=== PATIENT | female | born 1965 | race Caucasian/White ===

== ENCOUNTER 2024-02-17 06:32 | Inpatient (IN) | payer MEDICARE, OTHER ==
[~2024-02-17] VITALS: Ht 167.6 cm; Wt 80.4 kg
[2024-02-17] VITALS (49 sets, daily range): BP systolic 72–129; BP diastolic 34–78
[2024-02-17 08:02] LABS: Hematocrit 39.9 % (33.0-51.0); Hemoglobin 11.6 g/dL (11.5-16.0); Mean Corpuscular HGB 29.3 pg (26.0-34.0); Mean Corpuscular HGB Conc 29.1 g/dL (31.5-36.5); Mean Corpuscular Volume 101 fL (80-100); Mean Platelet Volume 11.4 fL (9.1-12.4); Platelet Count 252 K/mm3 (150-400); RDW Coefficient Variation 12.5 % (11.7-14.2); RDW Standard Deviation 46.7 fL (35.1-46.3); Red Blood Cell Count 3.96 M/mm3 (3.80-5.20); White Blood Cell Count 28.97 K/mm3 (4.00-11.30)
[2024-02-17 08:04] LABS: Bicarbonate Venous 3.1 mmol/L (24.0-30.0); PCO2 Venous 26.2 mmHg (38-42); pH Blood Venous < 6.82 (7.34-7.37)
[2024-02-17 08:05] LABS: Base Excess Venous -35.1 mmol/L
[2024-02-17] MEDS ORDERED: Prozac40 MG PO (08:09)
[2024-02-17] MEDS ORDERED: CefTRIAXone Sodium 1,000 MG in NS 100 ML IV ONE (08:20)
[2024-02-17] MEDS ORDERED: NS 1,000 ML IV SCH ×3 (08:20→11:10)
[2024-02-17] MEDS ORDERED: Azithromycin 500 MG in NS 250 ML IV ONE (08:25)
[2024-02-17] MEDS ORDERED: Ketorolac Tromethamine 30mg Vial IV ONE (08:25)
[2024-02-17 08:35] LABS: Albumin, Blood 3.3 g/dL (3.4-5.0); Albumin/Globulin Ratio 0.8 (0.8-1.8); BASOPHILS PERCENT MAN 0 % (0-2); Bilirubin, Total 0.6 mg/dL (0.1-1.0); Calcium, Blood 8.7 mg/dL (8.5-10.1); Creatinine, Blood 9.61 mg/dL (0.40-1.00); EOSINOPHILS PERCENT MAN 0 % (0-6); Globulin, Blood 4.2 g/dL (2.2-4.0); LYMPHOCYTES ABSOLUTE MAN 2.31 K/mm3 (0.84-5.20); LYMPHOCYTES PERCENT MAN 8 % (21-46); MONOCYTES ABSOLUTE MAN 1.15 K/mm3 (0.16-1.47); MONOCYTES PERCENT MAN 4 % (4-13); NEUTROPHILS ABSOLUTE MAN 25.49 K/mm3 (1.96-9.15); Potassium, Blood 5.5 mmol/L (3.5-5.5); SEG NEUTROPHILS PERCENT MAN 88 % (41-73); TOTAL CELLS COUNTED 100; Total Protein, Blood 7.5 g/dL (6.4-8.2)
[2024-02-17] MEDS ORDERED: Sodium Bicarb 8.4% 1 MEQ/ML 50 ML Vial IV ONE ×3 (08:35→13:00)
[2024-02-17 08:41] LABS: Influenza A, PCR NEGATIVE (NEGATIVE); Influenza B, PCR NEGATIVE (NEGATIVE); Resp Syncytial Virus, PCR NEGATIVE (NEGATIVE); SARS-Cov-2 (COVID-19) PCR, MMC NEGATIVE (NEGATIVE)
[2024-02-17 08:59] LABS: Acetaminophen, Random <2.0 ug/mL (10.0-30.0); Salicylate 3.4 mg/dL (2.8-20.0)
[2024-02-17 09:25] LABS: Source, Urine Foley catheter
[2024-02-17 09:26] LABS: Appearance, Urine Hazy (Clear); Bilirubin, Urine Neg (Neg); Blood, Urine 3+ (Neg); Color, Urine Yellow (P-Yellow); Glucose Qualitative, Urine Neg (Neg); Ketones, Urine 2+ (Neg); Leukocyte Esterase, Urine 3+ (Neg); Nitrite, Urine Neg (Neg); Protein, Urine 3+ (Neg); Urobilinogen, Urine NORM (Normal)
[2024-02-17] MEDS ORDERED: DiphenhydrAMINE HCl 50 MG/ML 1ML Vial IV ONE (09:30)
[2024-02-17 09:34] LABS: Bacteria Many /hpf; Red Blood Cells, Urine 0-2 /hpf (0-2); Squamous Epithelial Cells Few /hpf (Few); White Blood Cells, Urine 25-50 /hpf (0-5)
[2024-02-17 09:50] LABS: U Amphetamine Screen DETECTED; U Barbituate Screen Not Detected; U Benzodiazapine Screen Not Detected; U Buprenorphine Screen Not Detected; U Cannabinoids Screen Not Detected; U Cocaine Screen Not Detected; U Methadone Screen Not Detected; U Methamphetamine Screen Not Detected; U Opiates Screen Not Detected; U Oxycodone Screen Not Detected; U Phencyclidine Screen Not Detected
[2024-02-17] MEDS ORDERED: Sodium Bicarb 8.4% Inj 150 MEQ in Dextrose 5% 1,000 ML IV SCH (10:05)
[2024-02-17] MEDS ORDERED: Cefepime HCl 1,000 MG in NS 100 ML IV SCH (11:20)
[2024-02-17] MEDS ORDERED: OZEMPIC2 MG/0.75 (11:27)
[2024-02-17] MEDS ORDERED: OMEP20ER PO (11:27)
[2024-02-17] MEDS ORDERED: Norco 10-325 T1 EACH PO (11:28)
[2024-02-17] MEDS ORDERED: TRESIBA100 UNIT/2 SC (11:28)
[2024-02-17] MEDS ORDERED: QUET100 PO (11:29)
[2024-02-17] MEDS ORDERED: METF500C PO (11:29)
[2024-02-17] MEDS ORDERED: ATOR40TA PO (11:29)
[2024-02-17] MEDS ORDERED: LOSA25 PO (11:29)
[2024-02-17] MEDS ORDERED: Vancomycin HCL 1,500 MG in NS 250 ML IV ONE (11:35)
[2024-02-17] MEDS ORDERED: Insulin Human Lispro 100 Units/ML 3ML Syringe SC SCH (12:00)
[2024-02-17 12:39] LABS: Albumin, Blood 2.5 g/dL (3.4-5.0); Anion Gap 43 mmol/L (3-11); Blood Urea Nitrogen 74 mg/dL (8-24); Bun/Creatinine Ratio 8.1 (12.0-20.0); CO2, Blood 2 mmol/L (21-32); Calcium, Blood 6.9 mg/dL (8.5-10.1); Chloride, Blood 103 mmol/L (98-108); Glomerular Filtration Rate 5 (60-); Glucose, Blood 129 mg/dL (70-99); Phosphorus, Blood 14.2 mg/dL (2.5-4.9); Sodium, Blood 143 mmol/L (136-145)
--- NOTE | 2024-02-17 14:35 | NUR ---
ARRIVAL TO ICU PT ARRIVED TO ICU 8 AT THIS TIME. SHE IS RECEIVING BICARB 200ML/HR. SHE IS DROWSY BUT WAKENS TO VERBAL STIMULI. AFTER SLIDING TO ICU BED, PT MORE AWAKE AND A&OX3. SHE REPORTS FEELING A LITTLE BETTER THAN THIS MORNING. DENIES PAIN AT THIS TIME. SHE IS ON 2L NC WITH SPO2 >95%. SINUS ON MONITOR WITH RATE IN 80S. PT HYPOTENSIVE WITH MAP IN 50S. PROVIDER NOTIFIED, ORDER RECEIVED FOR LEVOPHED. LEVOPHED STARTED AT 2MCG/MIN. BOWEL TONES HYPOACTIVE, ABDOMEN SOFT. PT ATTEMPTED TO SIT ON BEDPAN WITHOUT SUCCESS. PT DENIES NAUSEA/GI UPSET. TEMP CHESTER PATENT AND DRAINING TO GRAVITY. CORE TEMP 92.5, WARM BLANKETS APPLIED. LABS DRAWN, RESULTS GIVEN TO APARTMENT HOTEL MANAGER AND FIRST HELPER. MEDICAL HISTORY PROVIDED MOSTLY FROM AND DAUGHTER. PLAN FOR EMERGENT DIALYSIS CATH PLACEMENT.
[2024-02-17 14:42] LABS: Base Excess Venous -28.3 mmol/L; PCO2 Venous 27.1 mmHg (38-42); pH Blood Venous 6.87 (7.34-7.37)
[2024-02-17] MEDS ORDERED: NS 250 ML IV PRN (14:45)
[2024-02-17 16:07] LABS: Albumin, Blood 2.6 g/dL (3.4-5.0); Anion Gap 42 mmol/L (3-11); Blood Urea Nitrogen 80 mg/dL (8-24); Bun/Creatinine Ratio 9.3 (12.0-20.0); CO2, Blood 7 mmol/L (21-32); Calcium, Blood 7.1 mg/dL (8.5-10.1); Chloride, Blood 101 mmol/L (98-108); Creatinine, Blood 8.56 mg/dL (0.40-1.00); Glomerular Filtration Rate 5 (60-); Glucose, Blood 204 mg/dL (70-99); Phosphorus, Blood 14.7 mg/dL (2.5-4.9); Potassium, Blood 5.3 mmol/L (3.5-5.5); Sodium, Blood 145 mmol/L (136-145)
--- NOTE | 2024-02-17 16:35 | NUR ---
FAMILY CONTACTS: ZEE TO (): [phone] BREEZY MORENO (DAUGHTER): [phone] AMELIA ERVIN (DAUGHTER): [phone]
[2024-02-17] MEDS ORDERED: Anticoagulant Sod Citrate Soln 3 ML SYR INJ PRN ×2 (17:00→17:05)
[2024-02-17] MEDS ORDERED: Albumin (Human) 25gm/100ml 100 ML IV ONE (17:40)
[2024-02-17] MEDS ORDERED: Heparin Sodium,Porcine 5,000 UNIT/0.5 ML SDV SC SCH (18:00)
--- NOTE | 2024-02-17 18:52 | NUR ---
SHIFT SUMMARY PT RECEIVING BICARB 200ML/HR AND LEVOPHED 3MCG/MIN. SHE REMAINS DROWSY BUT WAKENS TO VERBAL STIMULI. A&OX3 DURING CONVERSATION. SHE IS ON 2L NC WITH SPO2 >95%. SINUS ON MONITOR WITH RATE IN 80S-90S. PT TOLERATING SIPS OF WATER BUT OTHERWISE NPO. TEMP CHESTER PATENT AND DRAINING SMALL AMOUNT OF URINE. 250ML OUTPUT THIS AFTERNOON. CORE TEMP LOW UPON ARRIVAL TO UNIT. FLUID WARMER AND BARE HUGGER IN PLACE. CURRENT CORE TEMP 95.0. TRIALYSIS LINE PLACED THIS EVENING. CLAIMS COUNSEL AT BEDSIDE NOW. ZEE UPDATED VIA TELEPHONE. BED IN LOW POSITION AND CALL LIGHT WITHIN REACH.
[2024-02-17] MEDS ORDERED: Albumin (Human) 25gm/100ml 100 ML IV SCH (19:20)
--- NOTE | 2024-02-17 20:30 | NUR ---
WOUND NOTIFICATION HOSPITALIST NOTIFIED OF SACRAL WOUND PRESENT ON ADMISSION - PHOTOS IN CHART.
[2024-02-17] MEDS ORDERED: Famotidine 10 MG/ML 2ML Vial IV SCH (21:00)
--- NOTE | 2024-02-17 21:19 | NUR ---
ASSUMED CARE OF PATIENT AT 1900. REPORT RECEIVED FROM MODESTO DIAZ. PT IN BED, RECEIVING DIALYSIS AT TIME OF BEDSIDE REPORT. LEVOPHED INFUSING AT 3 MCG/MIN WITH BP OF 106/42 AND MAP OF 62. BICARB INFUSING AT 200mL/HR. R TRIALYSIS CATHETER VISUALIZED WITH MILD BLEEDING UNDER DRESSING. BEAR HUGGER AND FLUID WARMER IN PLACE. CORE TEMP CURRENTLY AT 95.0. NO ACUTE NEEDS IDENTIFED AT THIS TIME. SEE SHIFT ASSESSMENT FOR FULL DETAILS.
[2024-02-17] MEDS ORDERED: LORazepam 2 MG/ML 1ML Injection IV ONE (23:20)
[2024-02-17 23:51] LABS: Albumin, Blood 3.6 g/dL (3.4-5.0); Anion Gap 40 mmol/L (3-11); Blood Urea Nitrogen 55 mg/dL (8-24); CO2, Blood 12 mmol/L (21-32); Chloride, Blood 91 mmol/L (98-108); Creatinine, Blood 5.49 mg/dL (0.40-1.00); Glomerular Filtration Rate 8 (60-); Glucose, Blood 286 mg/dL (70-99); Potassium, Blood 3.8 mmol/L (3.5-5.5); Sodium, Blood 139 mmol/L (136-145)
[2024-02-17 23:52] LABS: Phosphorus, Blood 7.8 mg/dL (2.5-4.9)
[2024-02-18] VITALS (81 sets, daily range): BP systolic 86–200; BP diastolic 35–101
[2024-02-18 03:32] LABS: BASOPHILS ABSOLUTE AUTO 0.04 K/mm3 (0.00-0.23); BASOPHILS PERCENT AUTO 0 % (0-2); EOSINOPHILS PERCENT AUTO 0 % (0-6); Hematocrit 29.6 % (33.0-51.0); Hemoglobin 9.3 g/dL (11.5-16.0); IMMATURE GRAN ABSOLUTE AUTO 0.25 K/mm3 (0.00-0.10); IMMATURE GRAN PERCENT AUTO 1 % (0-1); LYMPHOCYTES ABSOLUTE AUTO 1.37 K/mm3 (0.84-5.20); LYMPHOCYTES PERCENT AUTO 7 % (21-46); MONOCYTES ABSOLUTE AUTO 1.93 K/mm3 (0.16-1.47); MONOCYTES PERCENT AUTO 9 % (4-13); Mean Corpuscular HGB 28.8 pg (26.0-34.0); Mean Corpuscular HGB Conc 31.4 g/dL (31.5-36.5); Mean Platelet Volume 11.4 fL (9.1-12.4); NEUTROPHILS PERCENT AUTO 83 % (41-73); Platelet Count 162 K/mm3 (150-400); Red Blood Cell Count 3.23 M/mm3 (3.80-5.20); White Blood Cell Count 20.89 K/mm3 (4.00-11.30)
[2024-02-18 03:57] LABS: Mean Corpuscular Volume 92 fL (80-100)
[2024-02-18 03:58] LABS: Magnesium, Blood 1.6 mg/dL (1.6-2.4); Uric Acid, Blood 8.9 mg/dL (2.6-6.0)
[2024-02-18 04:00] LABS: Albumin, Blood 3.5 g/dL (3.4-5.0); Anion Gap 38 mmol/L (3-11); Blood Urea Nitrogen 59 mg/dL (8-24); Bun/Creatinine Ratio 10.1 (12.0-20.0); CO2, Blood 14 mmol/L (21-32); Calcium, Blood 6.8 mg/dL (8.5-10.1); Chloride, Blood 89 mmol/L (98-108); Creatinine, Blood 5.83 mg/dL (0.40-1.00); Glomerular Filtration Rate 8 (60-); Glucose, Blood 370 mg/dL (70-99); Phosphorus, Blood 8.4 mg/dL (2.5-4.9); Potassium, Blood 4.1 mmol/L (3.5-5.5); Sodium, Blood 137 mmol/L (136-145); Vancomycin, Random 16.3 ug/mL
--- NOTE | 2024-02-18 06:04 | NUR ---
SHIFT SUMMARY PT REMAINED ALERT AND ORIENTED X 3 T/0 ENTIRETY OF SHIFT. UNABLE TO VERBALIZE DATE/TIME. AFEBRILE. BEAR HUGGER AND FLUID WARMER DC'ED D/T IMPROVEMENT OF TEMPERATURE. ABLE TO FOLLOW COMMANDS, MAKE PURPOSEFUL MOVEMENTS, AND MAKE NEEDS KNOWN. MONITOR SHOWED SR-ST WITH HR IN 90'S-100'S. LEVOPHED TITRATED TO MAINTAIN MAP > 65. LEVOPHED CURRENTLY AT 2 MCG/MIN. SBP 90'S-100'S. ON 2LPM O2 VIA NC WITH SATURATIONS > 95%. ONE BM THIS SHIFT. NPO D/T ASPIRATION RISK, TOLERATED SIPS OF WATER WELL. RECTAL TEMP PROBE REMOVED. CHESTER PATENT AND DRAINING THICK, FARFAN COLORED URINE TO GRAVITY. SACRAL WOUND PRESENT ON ADMISSION, HOSPITALIST AWARE. BILATERAL PIV's, RIJ INFUSING LEVOPHED. NEPHROLOGY PLANS FOR DIALYSIS AGAIN TODAY. WILL CONTINUE TO MONITOR AND REPORT TO ONCOMING RN.
[2024-02-18] MEDS ORDERED: Insulin Human Lispro 100 Units/ML 3ML Syringe SC SCH ×2 (08:06→08:10)
[2024-02-18] MEDS ORDERED: Anticoagulant Sod Citrate Soln 3 ML SYR INJ PRN (08:45)
[2024-02-18] MEDS ORDERED: Albumin (Human) 25gm/100ml 100 ML IV SCH (08:45)
[2024-02-18] MEDS ORDERED: Heparin Sodium,Porcine 5,000 UNIT/0.5 ML SDV SC SCH (09:00)
[2024-02-18] MEDS ORDERED: Albuterol 2.5 MG/3 ML VIAL INH PRN (09:15)
[2024-02-18] MEDS ORDERED: Ipratropium/Albuterol SulF 2.5-0.5MG/3 ML Amp INH SCH (09:15)
--- NOTE | 2024-02-18 13:43 | NUR ---
CARE FROM [id number] THIS RN ASSUMED CARE OF PT FROM [facility] MO[facility]INO[facility]. DURING BEDSIDE SHIFT REPORT THE PT WAS SLEEPING IN BED ON 2L NC W SPO2 >92%. BP W MAP >65 W LEVOPHED INFUSING AT 2 MCG/MIN, LEVOPHED TITRATED OFF SHORTLY AFTER SHIFT CHANGE AND BP WNL AND STABLE. MONITOR SHOWING SINUS ARRYTHMIA IN THE 90'S W ONE EPISODE OF SVT, STRIP IN THE CHART. PT'S TEMP IMPROVING THIS SHIFT AND IS NOW 97.0. PT W MINIMAL URINE OUTPUT THIS SHIFT BUT HAS IMPROVED T/O THE DAY. PT RECIEVED DIALYSIS THIS SHIFT AND POST DIALYSIS LABS BEING DRAWN NOW. THIS RN USING ULTRASOUND TO PLACE IV ACCESS THIS SHIFT WHEN SMALL BLOOD CLOT WAS FOUND ON ULTRASOUND IN THE PT'S R CEPHALIC VEIN, PROVIDER NOTIFIED AND ULTRASOUND ORDERED, RESULTS PENDING. PT W BILATERAL UPPER LOBE WHEEZING SO BRONCHO-DIALTOR PROTOCOL RESTARTED PER DR. VANG. PT HAD ONE BM THIS SHIFT. PT'S RINGS TAKEN OFF THIS SHIFT DUE TO HAND SWELLING. 4 RINGS TAKEN OFF AND GIVEN TO THE PT'S SPOUSE. PT GIVEN CHG BATH THIS SHIFT AND PADDED DRESSING PLACED ON COCCYX WOUND. THIS RN LEAVING FOR THE DAY AND GIVING REPORT TO RAHEL SALVADOR.
[2024-02-18] MEDS ORDERED: Vancomycin HCL 1,000 MG in NS 100 ML IV SCH (14:00)
[2024-02-18 14:34] LABS: Albumin, Blood 3.8 g/dL (3.4-5.0); Anion Gap 21 mmol/L (3-11); Blood Urea Nitrogen 38 mg/dL (8-24); Bun/Creatinine Ratio 10.6 (12.0-20.0); CO2, Blood 28 mmol/L (21-32); Calcium, Blood 7.5 mg/dL (8.5-10.1); Chloride, Blood 91 mmol/L (98-108); Glomerular Filtration Rate 14 (60-); Glucose, Blood 243 mg/dL (70-99); Potassium, Blood 3.3 mmol/L (3.5-5.5); Sodium, Blood 137 mmol/L (136-145)
[2024-02-18 14:35] LABS: Phosphorus, Blood 5.4 mg/dL (2.5-4.9)
[2024-02-18 14:47] LABS: Osmolality, Serum 311 mos/KG (275-300)
[2024-02-18] MEDS ORDERED: Darbepoetin Alfa in Polysorbat 25 MCG/0.42 ML Syringe SC SCH (16:00)
[2024-02-18] MEDS ORDERED: Sodium Bicarb 8.4% Inj 150 MEQ in Dextrose 5% 1,000 ML IV SCH (16:18)
[2024-02-18 17:45] LABS: Potassium, Blood 3.2 mmol/L (3.5-5.5)
[2024-02-18] MEDS ORDERED: Potassium Chl 20MEQ/Water100ML 100 ML IV ONE (17:50)
--- NOTE | 2024-02-18 18:29 | NUR ---
SHIFT SUMMARY ASSUMED CARE OF PT @ 1400, REPORT RECEIVED FROM QUINTIN SALVADOR. PT SLEEPING UPON ASSESSMENT, AWAKENS TO VERBAL STIMULI. ALERT TO PERSON, HOSPITAL, FAMILY, AND . QUICKLY BACK TO SLEEP WITH DECREASED STIMULI. PT FORGETFUL, REACHING FOR DIALYSIS LINE, PULLED ON IT MULTIPLE TIMES. BL MITTS IN PLACE DUE TO PULLING AT LINES. PT ON 3LPM O2 VIA NC c SATS >90%. LEVOPHED REMAINS OFF. SINUS ON THE UNIT MANAGER. TEMP PROBE CHESTER DRAINING CLOUDY YELLOW URINE, PT NORMOTHERMIC. MULTIPLE INCONTINENT BM'S TODAY. HEAT IN PLACE ON R ARM FOR BLOOD CLOT TREATMENT. FAMILY UPDATED AT BEDSIDE.
--- NOTE | 2024-02-18 22:00 | NUR ---
ASSUMED CARE AT 1900 PT LAYING IN BED SLEEPING AT SHIFT CHANGE. SHE IS ABLE TO FOLLOW SIMPLE COMMANDS AND IS ORIENTED X2 (SELF AND PERSON, NOT DATE OR LOCATION); MOVING ALL EXTREMITIES, EASILY FORGETS, AND IMPULSIVE. SPO2 >91% ON 5L NC; EXPIRATORY WHEEZE NOTED AND PRN BREATHING TX GIVEN BY RT. AFEBRILE. HR 90'S. SBP 120-140'S. CHESTER IN PLACE AND DRAINING TO GRAVITY. TRIALYSIS CATH TO RIJ NOTED WITH DRESSING C/D/I. CALL MADE TO HOSPITALIST REGARDING INCREASED AGITATION; ONE TIME DOSE OF FENTANYL GIVEN AND HELPFUL. SEE SHIFT ASSESSMENT FOR FULL ASSESSMENT.
[2024-02-18] MEDS ORDERED: FentaNYL Citrate 50 MCG/ML 2 ML Injection IV ONE (22:15)
[2024-02-19] VITALS (67 sets, daily range): BP systolic 110–195; BP diastolic 59–110
[2024-02-19] MEDS ORDERED: FentaNYL Citrate 50 MCG/ML 2 ML Injection IV PRN ×2 (03:45→19:00)
[2024-02-19 04:35] LABS: BASOPHILS ABSOLUTE AUTO 0.01 K/mm3 (0.00-0.23); BASOPHILS PERCENT AUTO 0 % (0-2); EOSINOPHILS PERCENT AUTO 0 % (0-6); Hematocrit 26.7 % (33.0-51.0); Hemoglobin 9.3 g/dL (11.5-16.0); IMMATURE GRAN ABSOLUTE AUTO 0.04 K/mm3 (0.00-0.10); IMMATURE GRAN PERCENT AUTO 0 % (0-1); LYMPHOCYTES ABSOLUTE AUTO 1.24 K/mm3 (0.84-5.20); LYMPHOCYTES PERCENT AUTO 10 % (21-46); MONOCYTES ABSOLUTE AUTO 1.06 K/mm3 (0.16-1.47); MONOCYTES PERCENT AUTO 9 % (4-13); Mean Corpuscular HGB 29.6 pg (26.0-34.0); Mean Corpuscular HGB Conc 34.8 g/dL (31.5-36.5); NEUTROPHILS ABSOLUTE AUTO 9.75 K/mm3 (1.96-9.15); NEUTROPHILS PERCENT AUTO 81 % (41-73); Platelet Count 126 K/mm3 (150-400); RDW Coefficient Variation 13.8 % (11.7-14.2); RDW Standard Deviation 42.7 fL (35.1-46.3); Red Blood Cell Count 3.14 M/mm3 (3.80-5.20)
[2024-02-19 04:46] LABS: Mean Corpuscular Volume 85 fL (80-100)
[2024-02-19 04:54] LABS: Magnesium, Blood 1.3 mg/dL (1.6-2.4)
[2024-02-19 04:55] LABS: Albumin, Blood 3.7 g/dL (3.4-5.0); Anion Gap 14 mmol/L (3-11); Blood Urea Nitrogen 59 mg/dL (8-24); Bun/Creatinine Ratio 12.9 (12.0-20.0); CO2, Blood 35 mmol/L (21-32); Calcium, Blood 7.2 mg/dL (8.5-10.1); Chloride, Blood 93 mmol/L (98-108); Creatinine, Blood 4.59 mg/dL (0.40-1.00); Glomerular Filtration Rate 10 (60-); Glucose, Blood 213 mg/dL (70-99); Phosphorus, Blood 6.2 mg/dL (2.5-4.9); Potassium, Blood 3.6 mmol/L (3.5-5.5); Sodium, Blood 138 mmol/L (136-145)
[2024-02-19] MEDS ORDERED: Magnesium Sulf 2 GM/Water 50ML 50 ML IV ONE (06:00)
--- NOTE | 2024-02-19 06:21 | NUR ---
END OF SHIFT SUMMARY PT HAD EPISODES OF AGITATION AND NOT BEING CONSOLABLE AND IMPULSIVE; SOFT BUE RESTRAINTS STARTED D/T PULLING AT TRIALYSIS CATH; SHE CONT TO BE A/O X2. PRN FENTANYL HELPFUL, WHEN ASKED IF SHE WAS IN PAIN SHE STATED "YES" BUT WAS UNABLE TO IDENTIFY WHERE. AFEBRILE. SPO2 >95% ON EITHER 5L NC OR 5L OXYMASK. AFEBRILE. HR 80-90'S. SBP 130-190'S. SEVERAL LOOSE BM'S THIS SHIFT. CHESTER IN PLACE AND DRAINING TO GRAVITY. DRESSING TO COCCYX CHANGED DURING BM CLEAN UP. DR NEWTON AT BEDSIDE AND PROVIDED ORDERS AND STATED THAT SHE WILL HAVE DIALYSIS TODAY. REPORT GIVEN TO JUSTIN SALVADOR.
[2024-02-19] MEDS ORDERED: Anticoagulant Sod Citrate Soln 3 ML SYR INJ PRN (09:05)
[2024-02-19] MEDS ORDERED: [UNRECOGNIZED DRUG - MIXTURE] IV SCH (11:20)
--- NOTE | 2024-02-19 11:56 | NUR ---
"Spiritual Care Visit | Pt./family Request pt. is both intubated and getting dialysis treatments in her room. Spouse is at bedside and welcomes my visit. Facilitated a life review. Spouse verbalized that he and the Pt. have only recently moved to the area. Spouse also verbalized that the family had been involved in the [employer] when they lived in [place]. Listen with emapthy and interest. Prayed for the Pt. Spouse verbalized gratitude for the spiritual care visit and welcomed this final coat sprayer to return."
[2024-02-19] MEDS ORDERED: Labetalol HCL 5 MG/ML 20MLVIAL IV PRN (14:15)
[2024-02-19 15:11] LABS: HEPATITIS B SURFACE ANTIBODY <3.10 IU/L; HEPATITIS B SURFACE ANTIGEN Negative (Negative); HEPATITIS BE ANTIBODY Negative (Negative); HEPATITIS BE ANTIGEN Negative (Negative)
--- NOTE | 2024-02-19 18:48 | NUR ---
SUMMARY PT ONLY MOANS ALL DAY. DOES NOT ANSWER ANY QUESTIONS. WILL REST QUIETLY AFTER FENTANYL. CONSTANTLY PULLING AT LINES DESPITE WRIST RESTRAINTS. PT PULLED CHESTER CATH OUT AT 1800, PULLS O2 OFF, AND ATTEMPTS AT PULLING TRIALYSIS CATH. DIALYSIS TODAY. BP ELEVATED, GAVE DOSE OF LABETOLOL WITH GOOD RESULTS. 5L OXYMASK, WHEN PT PULLS MASK OFF SPO2 IS 84%. VENOUS DUPLEX DONE TODAY D/T CLOT IN R ARM FOUND YESTERDAY. MOVES INDEP IN BED CONSTANTLY. NO OTHER CHANGES.
--- NOTE | 2024-02-19 19:38 | NUR ---
ASSUMED CARE OF PT AT 1900. REPORT RECEIVED. PT PRESENTS YELLING OUT WITH MOANING. ORDERS HAVE BEEN RECEIVED FROM JELLY MAKER FOR INCREASE TIMING ON FENTANYL WELL FOR PRECEDEX DRIP. PT WAS MEDICATED WITH 50 MCG'S FENTANYL WHICH HAS WORKED WELL TO REDUCE MOANING. PT UNABLE TO VERBALIZE NEEDS AT THIS TIME. DOES RESPOND "HI" TO GREETING. NO FURTHER EFFORTS BY PT MADE. NOTED PT'S FACE FLUSHED IN APPAEARANCE. AFEBRILE. WILL REVIEW CHART AND PLAN OF CARE FOR THIS PT.
[2024-02-20] VITALS (59 sets, daily range): BP systolic 95–448; BP diastolic 47–94
[2024-02-20 04:45] LABS: BASOPHILS ABSOLUTE AUTO 0.01 K/mm3 (0.00-0.23); BASOPHILS PERCENT AUTO 0 % (0-2); EOSINOPHILS ABSOLUTE AUTO 0.01 K/mm3 (0.00-0.68); EOSINOPHILS PERCENT AUTO 0 % (0-6); Hematocrit 24.2 % (33.0-51.0); Hemoglobin 7.8 g/dL (11.5-16.0); IMMATURE GRAN ABSOLUTE AUTO 0.02 K/mm3 (0.00-0.10); IMMATURE GRAN PERCENT AUTO 0 % (0-1); LYMPHOCYTES ABSOLUTE AUTO 1.09 K/mm3 (0.84-5.20); LYMPHOCYTES PERCENT AUTO 21 % (21-46); MONOCYTES ABSOLUTE AUTO 0.49 K/mm3 (0.16-1.47); MONOCYTES PERCENT AUTO 9 % (4-13); Mean Corpuscular HGB 29.3 pg (26.0-34.0); Mean Corpuscular HGB Conc 32.2 g/dL (31.5-36.5); Mean Platelet Volume 11.3 fL (9.1-12.4); NEUTROPHILS ABSOLUTE AUTO 3.67 K/mm3 (1.96-9.15); NEUTROPHILS PERCENT AUTO 69 % (41-73); Platelet Count 67 K/mm3 (150-400); RDW Standard Deviation 46.5 fL (35.1-46.3); Red Blood Cell Count 2.66 M/mm3 (3.80-5.20); White Blood Cell Count 5.29 K/mm3 (4.00-11.30)
[2024-02-20 04:57] LABS: Mean Corpuscular Volume 91 fL (80-100)
--- NOTE | 2024-02-20 05:13 | NUR ---
PT CONTINUES WITH PRECEDEX DRIP AT 0.3MCG'S/ KG/HOUR. HAVE MEDICATED PT TWICE WITH FENTANYL FOR MOANING. THIS DONE WITH GOOD AFFECT. PT HAS TOLERATED Q 2 HOUR TURNS IN BED. WHEN RESTRAINTS RELEASED DURING TURNS, PT DOES TEND TO REACH UP TO HER TRIALYSIS CATHETER OR HER OXIMASK. HAS BEEN ABLE TO MAINTAIN > 90 PERCENT SATURATIONS ON 2 L/M. WILL CONTINUE TO MONITOR PT, AND WILL REPORT OFF TO ONCOMING RN.
[2024-02-20 05:18] LABS: Magnesium, Blood 2.2 mg/dL (1.6-2.4)
[2024-02-20 05:19] LABS: Albumin, Blood 3.2 g/dL (3.4-5.0); Anion Gap 9 mmol/L (3-11); Blood Urea Nitrogen 38 mg/dL (8-24); Bun/Creatinine Ratio 11.9 (12.0-20.0); CO2, Blood 35 mmol/L (21-32); Calcium, Blood 7.6 mg/dL (8.5-10.1); Chloride, Blood 99 mmol/L (98-108); Glomerular Filtration Rate 16 (60-); Glucose, Blood 284 mg/dL (70-99); Phosphorus, Blood 4.8 mg/dL (2.5-4.9); Potassium, Blood 3.6 mmol/L (3.5-5.5); Sodium, Blood 139 mmol/L (136-145); Vancomycin, Random 14.6 ug/mL
--- NOTE | 2024-02-20 07:04 | NUR ---
DR NEWTON COMES IN TO SEE PT. WHEN HE AWAKENS HER, PT BECOMES VERY SCARED AND BEGINS TO YELL, "PLEASE" OVER AND OVER. IS NOT CONSOLABLE AT THIS TIME. MAKES AGRESSIVE ATTEMPTS TO PULL AT LINES AND TO GET OUT OF BED. ATTEMPTS TO REDIRECT AND TO ORIENT PT, WAS UNSUCESSFUL. DID ADMINISTER ADDITIONAL DOSE OF 25 MGC'S FENTANYL. THIS ALLOWS PT TO START TO CALM. INCREASED PRECEDEX DRIP TO 0.6 MCG'S/KG/HOUR. AT THIS TIME, PT IS RESTING.
[2024-02-20] MEDS ORDERED: Anticoagulant Sod Citrate Soln 3 ML SYR INJ PRN (07:35)
[2024-02-20] MEDS ORDERED: Albumin (Human) 25gm/100ml 100 ML IV PRN (07:40)
[2024-02-20 11:56] LABS: Source, Urine Foley catheter
[2024-02-20 11:59] LABS: Appearance, Urine Clear (Clear); Bilirubin, Urine Neg (Neg); Blood, Urine 5+ (Neg); Color, Urine Yellow (P-Yellow); Glucose Qualitative, Urine 3+ (Neg); Ketones, Urine 1+ (Neg); Leukocyte Esterase, Urine 1+ (Neg); Nitrite, Urine Neg (Neg); Protein, Urine 3+ (Neg); Specific Gravity, Urine 1.015 (1.003-1.022); Urobilinogen, Urine NORM (Normal)
[2024-02-20] MEDS ORDERED: Vancomycin HCL 1,000 MG in NS 100 ML IV ONE (12:00)
[2024-02-20 12:22] LABS: Bacteria Mod /hpf; Squamous Epithelial Cells Rare /hpf (Few); Transitional Epithelial Cells Few /hpf (0-Rare)
[2024-02-20] MEDS ORDERED: MethylPREDNISolone Sod Succ 40 MG VIAL IV ONE (16:10)
[2024-02-20] MEDS ORDERED: DiphenhydrAMINE HCl 50 MG/ML 1ML Vial IV ONE (16:10)
[2024-02-20] MEDS ORDERED: LORazepam 2 MG/ML 1ML Injection ONE (17:17)
--- NOTE | 2024-02-20 17:45 | NUR ---
Approx 1715, this RN entered room as pt was alarming that telemetry had removed. Found spots of blood with trialysis catheter laying on bed. Yesi RN and Christiana RN in room assisted pt to lay on L side with HOB flat. Pt highly agitated and yelling out / swatting at staff. Security called for assistance. This RN placed call to Dr Agee, provider gave verbal orders for 2 mg ativan and stated to keep head of bed flat. Stated okay to rotate pt left/right but to keep HOB supine until AM. Agitation calmed with administration of ativan. Pt cleaned up. SpO2 95% with 5 LPM oxymask. Family updated by primary RN, Christiana.
[2024-02-20] MEDS ORDERED: LORazepam 2 MG/ML 1ML Injection IV PRN (18:20)
--- NOTE | 2024-02-20 18:22 | NUR ---
SHIFT SUMMARY PATIENT REMAINS CONFUSED AND ATTEMPTS TO PULL AT LINES AND TUBES. PRECEDEX OFF FOR APPROXIMATELY 5-6 HOURS THIS SHIFT AND MEDICATED WITH FENTANYL 25MCG X1. 24HR URINE STARTED AND WILL END ON 02/20 @ 1130/. CHESTER PLACED FOR 24HR URINE WITH 825ML OUT. NO BM THIS SHIFT. RESTRAINTS REQUIRED UPGRADE TO TOUGH CUFFS. PATIENT REMOVED TRIALYSIS WHILE IN TOUGH CUFFS-SEE PREVIOUS NURSE NOTE. DIALYSIS COMPLETED TODAY WITH 2L REMOVED. NO OTHER CHANGES THIS SHIFT.
--- NOTE | 2024-02-20 19:21 | NUR ---
ASSUMED CARE OF PT AT 1900. REPORT RECEIVED AT BEDSIDE. PT PRESENTS IN BED. HAS TUFF CUFFS IN PLACE SECONDARY TO HER ABILITY TO GET OUT OF SOFT WRIST RESTREAINTS. PT HAS PULLED OUT HER TRIALYSIS CATHETER EARLIER IN DAY. DRESSING TO RIGHT SIDE OF NECK CDI WITHOUT HEMATOMA OR OOZING TO NOTE. WILL REVIEW CHART AND PLAN OF CARE FOR THIS PT.
[2024-02-21] VITALS (22 sets, daily range): BP systolic 139–167; BP diastolic 74–95
--- NOTE | 2024-02-21 | NUR ---
PT HAS BEEN ABLE TO REST SOME. HAS BEEN ON PRECEDEX AT 0.5 MCG'S/KG/HOUR. REMAINS IN SOFT WRIST RESTRAINTS AND HAS NOT BEEN ABLE TO GET HER HANDS OUT. HAS PULLED HER STATLOCK FOR HER CHESTER CATHETER APART AT SOME MOMENT THIS NIGHT. WILL CONTINUE TO MONITOR PT.
[2024-02-21 03:19] LABS: BASOPHILS PERCENT AUTO 0 % (0-2); EOSINOPHILS PERCENT AUTO 0 % (0-6); Hematocrit 27.7 % (33.0-51.0); Hemoglobin 8.8 g/dL (11.5-16.0); IMMATURE GRAN ABSOLUTE AUTO 0.02 K/mm3 (0.00-0.10); IMMATURE GRAN PERCENT AUTO 1 % (0-1); LYMPHOCYTES ABSOLUTE AUTO 0.28 K/mm3 (0.84-5.20); LYMPHOCYTES PERCENT AUTO 7 % (21-46); MONOCYTES ABSOLUTE AUTO 0.16 K/mm3 (0.16-1.47); MONOCYTES PERCENT AUTO 4 % (4-13); Mean Corpuscular HGB Conc 31.8 g/dL (31.5-36.5); Mean Corpuscular Volume 91 fL (80-100); Mean Platelet Volume 11.6 fL (9.1-12.4); NEUTROPHILS ABSOLUTE AUTO 3.71 K/mm3 (1.96-9.15); NEUTROPHILS PERCENT AUTO 89 % (41-73); Platelet Count 65 K/mm3 (150-400); RDW Coefficient Variation 13.3 % (11.7-14.2); Red Blood Cell Count 3.03 M/mm3 (3.80-5.20); White Blood Cell Count 4.17 K/mm3 (4.00-11.30)
[2024-02-21 03:33] LABS: Albumin, Blood 3.2 g/dL (3.4-5.0); Anion Gap 9 mmol/L (3-11); Blood Urea Nitrogen 40 mg/dL (8-24); CO2, Blood 33 mmol/L (21-32); Calcium, Blood 7.8 mg/dL (8.5-10.1); Chloride, Blood 101 mmol/L (98-108); Creatinine, Blood 2.66 mg/dL (0.40-1.00); Glomerular Filtration Rate 20 (60-); Glucose, Blood 309 mg/dL (70-99); Magnesium, Blood 1.9 mg/dL (1.6-2.4); Phosphorus, Blood 4.4 mg/dL (2.5-4.9); Potassium, Blood 4.2 mmol/L (3.5-5.5); Sodium, Blood 139 mmol/L (136-145)
--- NOTE | 2024-02-21 03:36 | NUR ---
PT HAS BEEN MEDICATED WITH FENTANYL 25 MCG'S AND AGAIN WITH 1 MG ATIVAN FOR INCREASING MOANING AND YELLING OUT. PT HAS BEEN WORKING HARD AT REACHING HER OXIMASK, AND IS ABLE TO GET HER OXYMETER OFF HER TOE. PT CURRENTLY RESTING IN BED. 24 HOUR URINE COLLECTION CONTINUES. NEW IV WAS STARTED EARLIER IN EVENING IN RIGHT FOREARM/WRIST AREA. CLINIMIX INFUSING AT RATE PRESCRIBED. O2 PER OXIMASK AT 2-3 L/M AFFECTIVE TO KEEP OXYGEN SATURATION > 90 PERCENT. NO S/S DISTRESS AT THIS TIME.
--- NOTE | 2024-02-21 07:00 | NUR ---
ASSUME CARE: I have assumed care of this patient.
--- NOTE | 2024-02-21 07:00 | NUR ---
ASSUME CARE: I have assumed care of this patient.
--- NOTE | 2024-02-21 08:45 | NUR ---
FAMILY UPDATE: Pt's sister provded update via telephone.
[2024-02-21] MEDS ORDERED: Fat Emulsion 20 % IV 250 ML IV SCH (09:00)
[2024-02-21] MEDS ORDERED: Insulin Regular 100 UNIT/ML 10ML Vial SC SCH (12:20)
[2024-02-21 12:24] LABS: Protein, Urine Quantitative 94.4 mg/dL (0.0-11.9)
[2024-02-21 16:06] LABS: HEPATITIS A ANTIBODY, IGM Negative (Negative); HEPATITIS B CORE ANTIBODY, IGM Negative (Negative); HEPATITIS B SURFACE ANTIGEN Negative (Negative); HEPATITIS C AB CIA INTERP Negative (Negative); HEPATITIS C ANTIBODY CIA INDEX <0.02 IV
[2024-02-21] MEDS ORDERED: Acetaminophen 650 MG Supp PR PRN (16:30)
[2024-02-21 16:53] LABS: HEPATITIS B SURFACE ANTIBODY <3.10 IU/L
--- NOTE | 2024-02-21 17:55 | NUR ---
SHIFT SUMMARY: Precedex titrated off this shift. Patient up in chair via ceiling lift for approximately four hours. She is now opening her eyes spontaneously and is oriented to self. Pt is still confused and has difficulty with verbal expression repeating one word responses over and over again. Pt agreed to restraint removal plan. Gil removed after 24-hour urine collection and purewick placed with good UOP.
--- NOTE | 2024-02-21 21:22 | NUR ---
ASSUMED CARE @ 1900 PATIENT IN BED WITH FAMILY AT BEDSIDE. HAS KATJA TRUONG STOCKING ON, NACL RUNNING AT TKO. SBP 150-160'S. ON 2L OF O2 VIA NASAL CANNULA.CALL LIGHT WITHIN REACH
[2024-02-22] VITALS (12 sets, daily range): BP systolic 150–178; BP diastolic 68–90
--- NOTE | 2024-02-22 02:38 | NUR ---
BELEN AGNNON CALLED TO DISCUSS MOTHER'S CONDITION. ASKED PATIENT AND PATIENT SISTER EARLENE IF IT WAS OKAY TO DISCUSS PATIENT CONDITION. BOTH SAID YES. BIGG WOULD LIKE TO CALL AND TALK TO MOTHER TOMORROW AROUND 11AM.
[2024-02-22 03:33] LABS: BASOPHILS ABSOLUTE AUTO 0.01 K/mm3 (0.00-0.23); BASOPHILS PERCENT AUTO 0 % (0-2); EOSINOPHILS ABSOLUTE AUTO 0.03 K/mm3 (0.00-0.68); EOSINOPHILS PERCENT AUTO 0 % (0-6); Hematocrit 30.8 % (33.0-51.0); Hemoglobin 9.9 g/dL (11.5-16.0); IMMATURE GRAN ABSOLUTE AUTO 0.02 K/mm3 (0.00-0.10); IMMATURE GRAN PERCENT AUTO 0 % (0-1); LYMPHOCYTES PERCENT AUTO 19 % (21-46); MONOCYTES PERCENT AUTO 9 % (4-13); Mean Corpuscular HGB 29.3 pg (26.0-34.0); Mean Corpuscular HGB Conc 32.1 g/dL (31.5-36.5); Mean Corpuscular Volume 91 fL (80-100); Mean Platelet Volume 11.1 fL (9.1-12.4); NEUTROPHILS ABSOLUTE AUTO 5.69 K/mm3 (1.96-9.15); NEUTROPHILS PERCENT AUTO 72 % (41-73); Platelet Count 105 K/mm3 (150-400); RDW Coefficient Variation 13.1 % (11.7-14.2); RDW Standard Deviation 43.6 fL (35.1-46.3); Red Blood Cell Count 3.38 M/mm3 (3.80-5.20); White Blood Cell Count 7.95 K/mm3 (4.00-11.30)
[2024-02-22 03:57] LABS: Albumin, Blood 3.4 g/dL (3.4-5.0); Anion Gap 7 mmol/L (3-11); Blood Urea Nitrogen 50 mg/dL (8-24); Bun/Creatinine Ratio 21.1 (12.0-20.0); CO2, Blood 35 mmol/L (21-32); Calcium, Blood 8.1 mg/dL (8.5-10.1); Chloride, Blood 105 mmol/L (98-108); Creatinine, Blood 2.37 mg/dL (0.40-1.00); Glomerular Filtration Rate 23 (60-); Glucose, Blood 137 mg/dL (70-99); Magnesium, Blood 1.6 mg/dL (1.6-2.4); Phosphorus, Blood 3.6 mg/dL (2.5-4.9); Potassium, Blood 3.2 mmol/L (3.5-5.5); Sodium, Blood 144 mmol/L (136-145); Triglycerides 128 mg/dL (30-160)
[2024-02-22] MEDS ORDERED: Potassium Chl 20MEQ/Water100ML 100 ML IV STA (05:34)
--- NOTE | 2024-02-22 06:21 | NUR ---
SHIFT SUMMARY PATIENT SLEEP ON AND OFF THROUGH NIGHT, SISTER EARLENE STAY WITH HER. PATIENT YELLED OUT FOR NURSE SERVERAL TIMES THROUGH NIGHT, WANTED TO TELL NURSE SHE WAS SCARED, NURSE REASSURED HER AND PATIENT WOULD GO BACK TO SLEEP FOR A WHILE. PATIENT GOT A ONE TIME ORDER FOR POTASSIUM 20MEQ. GOT 25MCG OF FENTANYL FOR BACK PAIN AND PATIENT SLEEP FOR ABOUT 20 MINUTES. PATIENT CAN AND WILL ADJUST HERSELF IN BED. CALL LIGHT WITHIN REACH, HR HAS BEEN IN THE 80'S, SBP 160-170'S HAVE GIVING 20MG X2 OF LABETALOL, LAST DOSE AT 0620 SPB DOWN TO THE 160'S. WILL CONTINUE TO MONITOR.
[2024-02-22] MEDS ORDERED: LORazepam 2 MG/ML 1ML Injection IV PRN (11:30)
[2024-02-22] MEDS ORDERED: Insulin Regular 100 UNIT/ML 10ML Vial SC SCH ×2 (12:00→16:30)
--- NOTE | 2024-02-22 14:54 | NUR ---
SUMMARY PT A/O TO PERSON, PLACE, SITUATION AND FAMILY. ABLE TO USE CALL LIGHT APPROPRIATELY. PT HAS BEEN OOB TO CHAIR AND OOB TO BSC A COUPLE TIMES TODAY. FOLLOWING COMMANDS WELL AND GETTING STRONGER EACH TIME. WORKED WITH PT THIS AM AND ST. ABLE TO TOLERATE SOME PUDDING BUT DOESN'T HAVE MUCH OF AN APPETITE YET. ON CLINIMIX AND LIPIDS UNTIL APPETITE IMPROVES. TRANSFERED TO U 8 VIA W/C, NO SIGN OF DISTRESS, SPOUSE ACCOMPANIES PT.
--- NOTE | 2024-02-22 15:13 | NUR ---
Transfer to PCU 8/[place] of Care: Patient transferred from ICU 8 to PCU * at approx 1450hr. Transferred via w/c, stood and transferred to bed without difficulty. VSS, SpO2 97% on 2L/NC. C/o pain to bottom/coccyx, effectively treated with turning to side lying position. Denies dyspnea/SOB, appears calm and comfortable. Peripheral IV's x2 patent and intact. Call light in reach, makes needs known. at bedside. Will continue to monitor.
[2024-02-22] MEDS ORDERED: OxyCODONE HCL 5 MG TAB PO PRN (17:50)
[2024-02-22] MEDS ORDERED: Acetaminophen 325 MG TABLET PO PRN (17:50)
--- NOTE | 2024-02-22 18:33 | NUR ---
Shift Summary: No significant changes throughout remainder of shift. VS remain stable. Up to Recliner via stand-by assist for dinner. Poor appetite, but family brought in tomato soup and watermelon, for which she had improved appetite. Patient remains drowsy, but oriented x3. C/o pain to lower back, prn tylenol given late shift, will monitor for effect. Order received per Dr. Triana to give tylenol first, then prn oxycodone if non-effective. Multiple family members at bedside. Call light in reach, makes needs known. Will continue to monitor until report to NOC shift RN.
[2024-02-22] MEDS ORDERED: Labetalol HCL 5 MG/ML 4ML Injection (Single Dose) IV PRN (19:30)
[2024-02-23] VITALS (14 sets, daily range): BP systolic 124–176; BP diastolic 61–91
[2024-02-23] MEDS ORDERED: DiphenhydrAMINE HCL 25 MG Cap PO ONE (02:00)
--- NOTE | 2024-02-23 02:13 | NUR ---
PT STARTED TO COMPLAIN OF GENERALIZED ITCHINESS AT ABOUT 0150. PT APPEARS SOMEWHAT FLUSHED, ORAL TEMPERATURE 97.8, TEMPORAL 98.0. NO OTHER NEW SYMPTOMS REPORTED. CALLED TO NOTIFY RESIDENT. ORDERED 25 MG PO BENADRYL ONE TIME. ADMINISTERED. CONTINUING TO MONITOR.
[2024-02-23 03:26] LABS: Hematocrit 32.1 % (33.0-51.0); Hemoglobin 10.2 g/dL (11.5-16.0)
[2024-02-23 03:41] LABS: Albumin, Blood 3.4 g/dL (3.4-5.0); Anion Gap 8 mmol/L (3-11); Blood Urea Nitrogen 43 mg/dL (8-24); Bun/Creatinine Ratio 22.8 (12.0-20.0); CO2, Blood 35 mmol/L (21-32); Calcium, Blood 8.3 mg/dL (8.5-10.1); Chloride, Blood 103 mmol/L (98-108); Creatinine, Blood 1.89 mg/dL (0.40-1.00); Glomerular Filtration Rate 30 (60-); Glucose, Blood 259 mg/dL (70-99); Magnesium, Blood 1.4 mg/dL (1.6-2.4); Phosphorus, Blood 2.9 mg/dL (2.5-4.9); Potassium, Blood 3.6 mmol/L (3.5-5.5); Sodium, Blood 142 mmol/L (136-145)
--- NOTE | 2024-02-23 04:24 | NUR ---
SHIFT SUMMARY. PT HAS OVERALL DONE WELL THROUGHOUT SHIFT. AOX3, PLEASANT, COOPERATIVE WITH CARE, CALLS APPROPRIATELY, ABLE TO MAKE NEEDS KNOWN. HAS BEEN ABLE TO SLEEP SPORADICALLY. BP HAS BEEN ELEVATED THROUGHOUT SHIFT. MANAGED VIA IV PRN LABETALOL THUS FAR BUT CONTINUES TO RUN HYPERTENSIVE. MAINTAINS ADEQUATE SATURATION ON 2 L O2 VIA NC. PAIN HAS BEEN ADEQUATELY MANAGED VIA EMAR. ITCHING HAS SUBSIDED MORNING HAS GONE ALONG. SEE RELATED NOTE FOR DETAILS. STEADY 1PA TRANSFER TO BEDSIDE COMMODE. BED LOCKED IN LOWEST POSITION. CALL LIGHT LEFT WITHIN REACH. CONTINUING TO MONITOR.
[2024-02-23] MEDS ORDERED: Ondansetron HCl 2 MG / ML 2ML Vial IV PRN (05:05)
[2024-02-23] MEDS ORDERED: MAGNESIUM SULFATE IV ONE (06:00)
[2024-02-23] MEDS ORDERED: NS IV ONE (06:00)
[2024-02-23 06:32] LABS: GBM, IGG MULTIPLEX BEAD ASSAY 0 AU/mL (0-19)
[2024-02-23 06:32] LABS: MYELOPEROXIDASE (MPO) AB,IGG 0 AU/mL (0-19); SERINE PROTEINASE 3 PR3 AB,IGG 1 AU/mL (0-19)
--- NOTE | 2024-02-23 10:09 | NUR ---
AM NOTES; NO ACUTE CHANGE FOR THE SHIFT, VITALS HRR SR 70'S, SBP 150'S, SATS ABOVE 93% ON 3L OF O2, AFEBRILE. PT WAS UP IN THE CHAIR FOR BREAKFAST, DECREASED APPETITE PT REFUSED BREAKFAST PT REPORTS FOOD NOT TASTING GOOD FOR HER RIGHT NOW REQUESTED JELLO AND PUDDING. SLOW TO RESPOND, GENERALIZED WEAKNESS. SPEECH THERAPIST ADVANCED HER DIET TO SOFT BITE SIZE. DR NEWTON CAME IN THIS MORNING ABLE TO DISCUSS PLAN WITH THE PT. NO NEW ORDERS AT THIS TIME, PT HAS BEEN USING BSC FOR TOILETING VOIDED 3X THIS MORNING ALREADY, 1PA FOR TRANSFERS. PT DENIES CHEST PAIN/SOB/PALPITATIONS, NO TOHER COMPLAINS REPORTED. PT CURRENTLY BACK IN BED, CALL LIGHTS IN REACH WILL CONTINUE TO MONITOR
[2024-02-23] MEDS ORDERED: DiphenhydrAMINE HCL 25 MG Cap PO PRN (14:30)
[2024-02-23 15:35] LABS: ANTINUCLEAR AB (ANA),HEP-2,IGG <1:80 (<1:80)
--- NOTE | 2024-02-23 15:54 | NUR ---
SHIFT SUMMARY; PT ABLE TO WORK WITH PHYSICAL THERAPIST ABLE TO TOLERATE, [address] ADVANCE HER DIET TO SOFT BITE SIZE STILL NOT LIKING THE FOOD BEING SERVED PT HAD BITES OF EACH ITEM IN THE TRAY THEN ICE CREAM AFTER. PT REMAINS ON CLINIMIX GTT AT 50MLS/HR, IV ABO. PT HAD PAIN MEDICINE X1 FOR GAYE PAIN ALSO SOME BENADRYL FOR ITCHING, PT REMAINS HYPERTENSIVE 150-170'S, LABETALOL 20 MG GIVEN X1. AT THE BEDSIDE AWARE OF THE PLAN OF CARE. NO OTHER ISSUES ENCOUNTERED REPORT GIVEN TO BRIAN SALVADOR.
--- NOTE | 2024-02-23 18:00 | NUR ---
SHIFT SUMMARY ASSUMED CARE OF PT AT 1545. PT HAS BEEN A/O, CALM AND COOPERATIVE. NAPPED AFTER BENADRYL GIVEN FOR ITCHING. ON 2L NC, O2 SAT > 94%. DENIES NAUSEA, FSBG 166 PRIOR TO DINNER, COVERED ORDERED PER NOV. PT DENIES PAIN. NO ISSUES WITH VOIDING. SKIN INTACT WITH SOME SCATTERED BRUISES. PIV IN RIGHT AND LEFT FOREARM, CLINIMIX INFUSING. POC ONGOING.
[2024-02-23] MEDS ORDERED: QUEtiapine Fumarate 200 MG Tab PO SCH (21:00)
[2024-02-24 03:18] VITALS: BP 128/57
--- NOTE | 2024-02-24 04:17 | NUR ---
SHIFT SUMMARY. SHIFT HAS BEEN UNREMARKABLE. PT HAS BEEN AOX4, PLEASANT, COOPERATIVE WITH CARE, ABLE TO MAKE NEEDS KNOWN. SOMNOLENT THROUGHOUT MOST OF SHIFT AND ABLE TO SLEEP WELL. PAIN HAS BEEN ADEQUATELY MANAGED VIA EMAR. VITALS HAVE REMAINED STABLE AND PT HAS MAINTAINED ADEQUATE SATURATION ON 2-4 L O2 VIA NC. 2 L O2 WHILE AWAKE AND 4 L O2 WHILE SLEEPING. CLINIMIX RUNNING THROUGHOUT SHIFT. SELECT HOME MEDICATIONS HAVE NOT BEEN STARTED INCLUDING LOSARTAN, PROZAC, AND SEROQUEL. SPOKE WITH HOSPITALIST DR. ONOFRE AND WAS ABLE TO RESTART HOME DOSE OF SEROQUEL. PT HAS BEEN CONTINENT THROUGHOUT SHIFT AND I+Os HAVE BEEN CHARTED APPROPRIATELY. BED IS LOCKED IN LOWEST POSITION AND CALL LIGHT IS WITHIN REACH. CONTINUING TO MONITOR.
[2024-02-24 04:24] LABS: Hematocrit 28.8 % (33.0-51.0); Hemoglobin 9.2 g/dL (11.5-16.0)
[2024-02-24 04:58] LABS: Anion Gap 8 mmol/L (3-11); Blood Urea Nitrogen 45 mg/dL (8-24); Bun/Creatinine Ratio 25.4 (12.0-20.0); CO2, Blood 34 mmol/L (21-32); Calcium, Blood 8.3 mg/dL (8.5-10.1); Chloride, Blood 103 mmol/L (98-108); Creatinine, Blood 1.77 mg/dL (0.40-1.00); Glomerular Filtration Rate 32 (60-); Glucose, Blood 231 mg/dL (70-99); Magnesium, Blood 1.1 mg/dL (1.6-2.4); Phosphorus, Blood 3.8 mg/dL (2.5-4.9); Potassium, Blood 3.4 mmol/L (3.5-5.5); Sodium, Blood 142 mmol/L (136-145)
[2024-02-24] MEDS ORDERED: Magnesium Sulf 2 GM/Water 50ML 50 ML IV ONE (05:10)
[2024-02-24 07:39] VITALS: BP 141/60
[2024-02-24] MEDS ORDERED: FLUoxetine HCL 20 MG CAP PO SCH (09:00)
[2024-02-24] MEDS ORDERED: Losartan Potassium 25 MG Tab PO SCH (09:00)
[2024-02-24 10:57] VITALS: BP 158/72
--- NOTE | 2024-02-24 11:02 | NUR ---
AM NOTES; PT REMAINED ALERT AND ORIENTED X3-4, ABLE TO MAKE NEEDS KNOWN, CALLS APPROPRIATELY. NO ISSUES REPORTED THIS MORNING PT HAS BEEN GETTING UP IN THE RECLINER FOR MEALS AND USES BEDSIDE COMMODE FOR TOILETING PT HAD A BED BATH THIS MORNING PT HAS OPEN SORE/ULCER IN THE COCCYX MEPILEX IN PLACE FOR PROTECTION. VITALS HRR 70'S SR SBP 140-150S, SATS ABOVE 90% ON 3L OF O2, AFEBRILE. HOME PO MEDS RESUMED PER PROVIDERS ORDER. PT WAS C/O BILATERAL ARM PAIN NOTICED SOME REDNESS AND TENDERNESS ON BOTH IV SITES, OFFERED TO PLACE POWERLGLIDE DUE TO PPN PT CURRENTLY RECEIVING PT WAS AGREEABLE. BOTH IV'S WERE PULLED POWERGLIDE ON YAJAIRA PLACED AND DRAWS BLOOD WITH NO ISSUES. PT AT 35% OF HER MEALS FOR BREAKFAST. PT NOW UP SITTING IN THE SIDE OF THE BED, FAMILY AT THE BEDSIDE. CALL LIGHTS IN REACH WILL CONTINUE TO MONITOR
[2024-02-24 15:39] VITALS: BP 156/76
[2024-02-24] MEDS ORDERED: Saline Nasal Spray 45 ML PRN (16:45)
--- NOTE | 2024-02-24 17:24 | NUR ---
PT SUMMARY; NO ACUTE CHANGE FOR THE SHIFT. VITALS HAS BEEN STABLE. PT MEDICATED FOR PAIN X2 PT REPORTS EFFECTIVENESS. PT HAS BEEN GETTING AND AMBULATING IN THE ROOM SBA UP TO THE CHAIR AND BSC. MULTIPLE FAMILY AT THE BEDSIDE AT THIS TIME. SISTER AND AT THE BEDSIDE MOST OF THE SHIFT. HOME MEDS RESUMED CLINIMIX STILL INFUSING AT 50MLS/HR. PT STILL HAS DECREASE APPETITE. NO OTHER ISSUES REPORTED. WILL REPORT TO ONCOMING SHIFT
[2024-02-24 20:36] VITALS: BP 165/75
[2024-02-24] MEDS ORDERED: Atorvastatin 40 MG Tab PO SCH (21:00)
[2024-02-24] MEDS ORDERED: Insulin Glargine-Yfgn 100 Unit/mL 3 ML SYR SC SCH (21:00)
--- NOTE | 2024-02-25 01:15 | NUR ---
ASSUMED CARE PT WAS TRANSFERED FROM PCU TO ROOM 227, PT IS A&O X4, SPO2 >92%, 3 L O2 VIA NC, RESP UNLABORED, VSS. CLINIMIX INFUSING. PT WAS BROUGHT TO THE ROOM IN HER BED, WARM BLANKETS PROVIDED, SBA TO BSC, VOIDING WNL, ASSISTED BACK TO BED, BED IN LOW POSITION, CALL LIGHT IN REACH. WCTM
[2024-02-25 01:50] VITALS: BP 156/77
[2024-02-25 04:50] VITALS: BP 144/59
[2024-02-25] MEDS ORDERED: Omeprazole 20 MG CapCR PO SCH (06:00)
[2024-02-25 06:03] LABS: Hematocrit 26.9 % (33.0-51.0); Hemoglobin 8.7 g/dL (11.5-16.0)
[2024-02-25 06:24] LABS: Albumin, Blood 2.8 g/dL (3.4-5.0); Anion Gap 8 mmol/L (3-11); Blood Urea Nitrogen 42 mg/dL (8-24); Bun/Creatinine Ratio 26.9 (12.0-20.0); CO2, Blood 35 mmol/L (21-32); Calcium, Blood 8.5 mg/dL (8.5-10.1); Chloride, Blood 106 mmol/L (98-108); Creatinine, Blood 1.56 mg/dL (0.40-1.00); Glomerular Filtration Rate 38 (60-); Glucose, Blood 200 mg/dL (70-99); Magnesium, Blood 1.6 mg/dL (1.6-2.4); Phosphorus, Blood 3.8 mg/dL (2.5-4.9); Potassium, Blood 3.7 mmol/L (3.5-5.5); Sodium, Blood 145 mmol/L (136-145)
--- NOTE | 2024-02-25 06:26 | NUR ---
SUMMARY PT HAS BEEN RESTING COMFORTABLY IN BED SINCE TRANSFER, A&O X4, VSS, O2 VIA NC, SPO2 >94%, CLINIMIX INFUSING PER EMAR, WCTM & REPORT TO DAY RN, BED IN LOW POSITION, CALL LIGHT IN REACH
[2024-02-25 07:03] VITALS: BP 124/61
[2024-02-25] MEDS ORDERED: BANOPHEN25 MG PO (12:50)
[2024-02-25] MEDS ORDERED: ACET325 PO (12:50)
[2024-02-25] MEDS ORDERED: OXAYDO5 M1 PO (12:51)
[2024-02-25] MEDS ORDERED: Nasal Spray30 M1 (12:53)
[2024-02-25] MEDS ORDERED: VISBIOME 112.51 EACH PO (12:53)
[2024-02-25] MEDS ORDERED: DOXY100 PO (12:54)
[2024-02-25 14:52] VITALS: BP 160/74
[2024-02-25] MEDS ORDERED: Darbepoetin Alfa In Albumn Sol 40 MCG/0.4 ML SC ONE (16:00)
--- NOTE | 2024-02-25 16:03 | NUR ---
discharged FWW DELIIVERED. REVIEWED DC INSTRUCTIONSW/PT; VERBALIZED UNDERSTANDING. PT'S PRESCRIPTIONS FAXED TO [facility] PER PT REQUEST. PT LEFT UNIT IN WC W/POSSESSIONS AND DC PAPERWORK IN HAND TO RIDE WAITING OUTSIDE.
== END 2024-02-25 16:03 | disposition home health service (06) | DRG 871 ==
LOC: ER 06:32 → ICUE 11:06 → PCU 02-22 14:29 → SURS 02-25 01:29
PROVIDERS: Emergency Medicine; Internal Medicine Critical Care Medicine; Internal Medicine Nephrology; ADMIT Internal Medicine
PROC: 02HV33Z Insertion of Infusion Device into Superior Vena Cava, Percutaneous Approach (ICD-10-PCS; principal; 2024-02-17)
PROC: B548ZZA Ultrasonography of Superior Vena Cava, Guidance (ICD-10-PCS; 2024-02-17)
PROC: 5A1D70Z Performance of Urinary Filtration, Intermittent, Less than 6 Hours Per Day (ICD-10-PCS; 2024-02-17)
PROC: 3E033XZ Introduction of Vasopressor into Peripheral Vein, Percutaneous Approach (ICD-10-PCS; 2024-02-17)
PROC: 3E03329 Introduction of Other Anti-infective into Peripheral Vein, Percutaneous Approach (ICD-10-PCS; 2024-02-18)
DX: A41.50 Gram-negative sepsis, unspecified (principal); G92.8 Other toxic encephalopathy; J96.01 Acute respiratory failure with hypoxia; R65.21 Severe sepsis with septic shock; N17.0 Acute kidney failure with tubular necrosis; N39.0 Urinary tract infection, site not specified; E87.21 Acute metabolic acidosis; M62.82 Rhabdomyolysis; E87.0 Hyperosmolality and hypernatremia; I12.9 Hypertensive chronic kidney disease with stage 1 through stage 4 chronic kidney disease, or unspecified chronic kidney disease; E11.22 Type 2 diabetes mellitus with diabetic chronic kidney disease; N18.9 Chronic kidney disease, unspecified; E83.42 Hypomagnesemia; G47.33 Obstructive sleep apnea (adult) (pediatric); F17.290 Nicotine dependence, other tobacco product, uncomplicated; F12.90 Cannabis use, unspecified, uncomplicated; E87.5 Hyperkalemia; D63.1 Anemia in chronic kidney disease; E88.09 Other disorders of plasma-protein metabolism, not elsewhere classified; L89.159 Pressure ulcer of sacral region, unspecified stage; K74.60 Unspecified cirrhosis of liver; E83.39 Other disorders of phosphorus metabolism; E87.70 Fluid overload, unspecified; E87.6 Hypokalemia; E86.9 Volume depletion, unspecified; Z91.041 Radiographic dye allergy status; Z79.4 Long term (current) use of insulin; Z79.899 Other long term (current) drug therapy; Z99.2 Dependence on renal dialysis; Z78.1 Physical restraint status
CPT/HCPCS: 0241U; 36415; 36556; 51702; 71045; 71046; 71275; 74174; 80053; 80069; 80074; 80202; 81001; 82140; 82330; 82374; 82375; 82550; 82803; 82947; 83036; 83516; 83605; 83735; 83930; 84132; 84156; 84478; 84484; 84550; 85014; 85018; 85025; 86039; 86334; 86335; 87040; 87077; 87086; 87186; 92526; 92610; 93005; 93010; 93306; 93970; 93971; 94640; 94664; 94760; 94762; 96365-59; 96366-59; 96367-59; 96375-59; 96376-59; 97110; 97116; 97162; 97165; 97530; 97535; 99285-25; A9270; C1752; G0480; J0456; J0692; J0696; J0881; J1200; J1644; J1815; J1885; J2060; J2919; J3010; J3370; J3475; J3480; J7030; J7050; J7060; J7070; P9047; Q9967

== ENCOUNTER 2024-06-30 20:51 | Emergency (ER) | payer OTHER ==
[~2024-06-30] VITALS: Ht 165.1 cm; Wt 80.7 kg
[~2024-06-30 20:51] MED LIST: ACET325 PO; ATOR40TA PO; BANOPHEN25 MG PO; DOXY100 PO; LOSA25 PO; METF500C PO; Nasal Spray30 M1; Norco 10-325 T1 EACH PO; OMEP20ER PO; OXAYDO5 M1 PO; OZEMPIC2 MG/0.75; Prozac40 MG PO; QUET100 PO; TRESIBA100 UNIT/2 SC; VISBIOME 112.51 EACH PO
[2024-06-30 21:38] LABS: BASOPHILS ABSOLUTE AUTO 0.03 K/mm3 (0.00-0.23); BASOPHILS PERCENT AUTO 0 % (0-2); EOSINOPHILS ABSOLUTE AUTO 0.09 K/mm3 (0.00-0.68); EOSINOPHILS PERCENT AUTO 1 % (0-6); Hematocrit 31.4 % (33.0-51.0); Hemoglobin 10.2 g/dL (11.5-16.0); IMMATURE GRAN ABSOLUTE AUTO 0.06 K/mm3 (0.00-0.10); IMMATURE GRAN PERCENT AUTO 1 % (0-1); LYMPHOCYTES ABSOLUTE AUTO 1.77 K/mm3 (0.84-5.20); LYMPHOCYTES PERCENT AUTO 25 % (21-46); MONOCYTES ABSOLUTE AUTO 0.41 K/mm3 (0.16-1.47); MONOCYTES PERCENT AUTO 6 % (4-13); Mean Corpuscular HGB 28.7 pg (26.0-34.0); Mean Corpuscular HGB Conc 32.5 g/dL (31.5-36.5); Mean Corpuscular Volume 88 fL (80-100); Mean Platelet Volume 10.9 fL (9.1-12.4); NEUTROPHILS ABSOLUTE AUTO 4.75 K/mm3 (1.96-9.15); NEUTROPHILS PERCENT AUTO 67 % (41-73); Platelet Count 115 K/mm3 (150-400); RDW Coefficient Variation 13.5 % (11.7-14.2); RDW Standard Deviation 43.6 fL (35.1-46.3); Red Blood Cell Count 3.56 M/mm3 (3.80-5.20); White Blood Cell Count 7.11 K/mm3 (4.00-11.30)
[2024-06-30 21:55] LABS: Albumin, Blood 3.3 g/dL (3.4-5.0); Albumin/Globulin Ratio 0.9 (0.8-1.8); Bilirubin, Total 0.6 mg/dL (0.1-1.0); Bun/Creatinine Ratio 18.5 (12.0-20.0); Calcium, Blood 9.1 mg/dL (8.5-10.1); Creatinine, Blood 1.08 mg/dL (0.40-1.00); Globulin, Blood 3.7 g/dL (2.2-4.0); Potassium, Blood 4.2 mmol/L (3.5-5.5)
== END 2024-07-01 02:10 | disposition home or self-care (01) ==
LOC: ER 20:51
PROVIDERS: Student in an Organized Health Care Education/Training Program
DX: R00.2 Palpitations (principal); R07.9 Chest pain, unspecified; E11.9 Type 2 diabetes mellitus without complications; F17.290 Nicotine dependence, other tobacco product, uncomplicated; Z91.041 Radiographic dye allergy status; Z91.09 Other allergy status, other than to drugs and biological substances; Z79.899 Other long term (current) drug therapy; Z79.4 Long term (current) use of insulin
CPT/HCPCS: 71045; 80053; 84484; 85025; 93005; 93010; 99285-25

== ENCOUNTER 2024-07-06 16:32 | Emergency (ER) | payer OTHER ==
[~2024-07-06] VITALS: Ht 165.1 cm; Wt 80.7 kg
[2024-07-06 17:32] LABS: Source, Urine Clean Catch
[2024-07-06 17:50] LABS: Appearance, Urine Hazy (Clear); Bilirubin, Urine Neg (Neg); Blood, Urine 1+ (Neg); Color, Urine Yellow (P-Yellow); Glucose Qualitative, Urine 4+ (Neg); Ketones, Urine Neg (Neg); Leukocyte Esterase, Urine 2+ (Neg); Nitrite, Urine Neg (Neg); Protein, Urine 2+ (Neg); Specific Gravity, Urine 1.025 (1.003-1.022); Urobilinogen, Urine NORM (Normal)
[2024-07-06 17:59] LABS: Bacteria Mod /hpf; Mucus Light (0-Heavy); Red Blood Cells, Urine 0-2 /hpf (0-2); Squamous Epithelial Cells Few /hpf (Few); Transitional Epithelial Cells Few /hpf (0-Rare); White Blood Cells, Urine 25-50 /hpf (0-5)
[2024-07-06 18:31] LABS: Candida Group, PCR NOT DETECTED (NOT DETECT)
[2024-07-06 18:33] LABS: Bacterial Vaginosis PCR Positive (NEGATIVE); Candida glabrata-krusei, PCR DETECTED (NOT DETECT)
[2024-07-06] MEDS ORDERED: Fluconazole 100 MG Tab PO ONE (19:50)
[2024-07-06] MEDS ORDERED: MetroNIDAZOLE 500 MG Tab PO ONE (19:50)
[2024-07-06] MEDS ORDERED: Trimethoprim/Sulfamethoxazole DS Tab PO ONE (19:55)
[2024-07-06] MEDS ORDERED: ATHLETE'S FOO35.4 GM TOP (19:57)
[2024-07-06] MEDS ORDERED: CEPH500 PO (19:57)
[2024-07-06] MEDS ORDERED: METR500 PO (19:57)
== END 2024-07-06 20:15 | disposition home or self-care (01) ==
LOC: ER 16:32
PROVIDERS: Student in an Organized Health Care Education/Training Program
DX: B37.31 Acute candidiasis of vulva and vagina (principal); N76.0 Acute vaginitis; N39.0 Urinary tract infection, site not specified; E11.9 Type 2 diabetes mellitus without complications; Z79.4 Long term (current) use of insulin; Z79.899 Other long term (current) drug therapy; Z91.041 Radiographic dye allergy status
CPT/HCPCS: 81001; 87086; 87481; 87661; 87801; 99284; A9270

== ENCOUNTER 2024-07-15 11:24 | Observation (INO) | payer OTHER ==
[~2024-07-15] VITALS: Ht 165.1 cm; Wt 80.7 kg
[~2024-07-15 11:24] MED LIST changes: +ATHLETE'S FOO35.4 GM TOP; +ATOR10 PO; -ATOR40TA PO; +CEPH500 PO; -LOSA25 PO; +LOSA50 PO; +METR500 PO; -QUET100 PO; +QUET200 PO
[2024-07-15 11:58] LABS: BASOPHILS ABSOLUTE AUTO 0.05 K/mm3 (0.00-0.23); BASOPHILS PERCENT AUTO 1 % (0-2); EOSINOPHILS ABSOLUTE AUTO 0.05 K/mm3 (0.00-0.68); EOSINOPHILS PERCENT AUTO 1 % (0-6); Hematocrit 33.9 % (33.0-51.0); Hemoglobin 10.8 g/dL (11.5-16.0); IMMATURE GRAN ABSOLUTE AUTO 0.06 K/mm3 (0.00-0.10); IMMATURE GRAN PERCENT AUTO 1 % (0-1); LYMPHOCYTES ABSOLUTE AUTO 1.55 K/mm3 (0.84-5.20); LYMPHOCYTES PERCENT AUTO 21 % (21-46); MONOCYTES ABSOLUTE AUTO 0.53 K/mm3 (0.16-1.47); MONOCYTES PERCENT AUTO 7 % (4-13); Mean Corpuscular HGB 29.3 pg (26.0-34.0); Mean Corpuscular HGB Conc 31.9 g/dL (31.5-36.5); Mean Corpuscular Volume 92 fL (80-100); NEUTROPHILS ABSOLUTE AUTO 5.01 K/mm3 (1.96-9.15); NEUTROPHILS PERCENT AUTO 69 % (41-73); RDW Coefficient Variation 14.2 % (11.7-14.2); Red Blood Cell Count 3.69 M/mm3 (3.80-5.20); White Blood Cell Count 7.25 K/mm3 (4.00-11.30)
[2024-07-15 12:23] LABS: Magnesium, Blood 1.9 mg/dL (1.6-2.4)
[2024-07-15 12:24] LABS: Albumin, Blood 3.5 g/dL (3.4-5.0); Albumin/Globulin Ratio 0.9 (0.8-1.8); Bilirubin, Total 0.7 mg/dL (0.1-1.0); Bun/Creatinine Ratio 20.7 (12.0-20.0); Calcium, Blood 8.4 mg/dL (8.5-10.1); Creatinine, Blood 1.93 mg/dL (0.40-1.00); Globulin, Blood 3.8 g/dL (2.2-4.0); Potassium, Blood 3.9 mmol/L (3.5-5.5); Total Protein, Blood 7.3 g/dL (6.4-8.2)
[2024-07-15 12:40] LABS: Mean Platelet Volume 11.5 fL (9.1-12.4)
[2024-07-15 12:49] LABS: Platelet Count 105 K/mm3 (150-400)
[2024-07-15 15:57] LABS: Source, Urine Clean Catch
[2024-07-15 16:06] LABS: Appearance, Urine Clear (Clear); Bilirubin, Urine Neg (Neg); Blood, Urine Neg (Neg); Color, Urine Yellow (P-Yellow); Glucose Qualitative, Urine Neg (Neg); Ketones, Urine Neg (Neg); Leukocyte Esterase, Urine Neg (Neg); Nitrite, Urine Neg (Neg); Protein, Urine Neg (Neg); Specific Gravity, Urine 1.015 (1.003-1.022); Urobilinogen, Urine NORM (Normal)
[2024-07-15 16:55] LABS: Influenza A, PCR NEGATIVE (NEGATIVE); Influenza B, PCR NEGATIVE (NEGATIVE); Resp Syncytial Virus, PCR NEGATIVE (NEGATIVE); SARS-Cov-2 (COVID-19) PCR, MMC NEGATIVE (NEGATIVE)
[2024-07-15] MEDS ORDERED: NS 1,000 ML IV SCH ×3 (18:45→21:15)
[2024-07-15 20:50] LABS: U Amphetamine Screen Not Detected; U Barbituate Screen Not Detected; U Benzodiazapine Screen Not Detected; U Buprenorphine Screen Not Detected; U Cannabinoids Screen Not Detected; U Cocaine Screen Not Detected; U Methadone Screen Not Detected; U Methamphetamine Screen Not Detected; U Opiates Screen DETECTED; U Oxycodone Screen DETECTED; U Phencyclidine Screen Not Detected
[2024-07-15] MEDS ORDERED: Ondansetron HCl 2 MG / ML 2ML Vial IV PRN (21:10)
[2024-07-15] MEDS ORDERED: FLU VACC TS2024-25(6MOS UP)/PF 45 MCG/0.5 ML SYRINGE IM SCH (21:10)
[2024-07-15] MEDS ORDERED: Clopidogrel Bisulfate 300 MG Cap PO ONE (21:10)
[2024-07-15] MEDS ORDERED: Aspirin 325 MG Tab PO ONE (22:00)
[2024-07-15] MEDS ORDERED: GLUCOPHAGE1000 M1 PO (22:44)
[2024-07-15] MEDS ORDERED: GLUCOSE4 GM PO (22:47)
[2024-07-15] MEDS ORDERED: OZEMPIC2 MG/0.75 SC (22:50)
[2024-07-15] MEDS ORDERED: [UNRECOGNIZED DRUG - OTHER] (22:53)
[2024-07-15] MEDS ORDERED: COLCRYS0.6 M1 PO (22:53)
[2024-07-15] MEDS ORDERED: BUMETANIDE2 M6 PO (22:54)
[2024-07-15] MEDS ORDERED: Lyrica300 MG PO (22:55)
[2024-07-15] MEDS ORDERED: NITROGLYCERIN0.4 M3 SL (22:56)
[2024-07-15] MEDS ORDERED: HUMALOG KW100 UNIT/1 SC (22:56)
[2024-07-15] MEDS ORDERED: KLOR-CON 1010 ME9 PO (22:57)
[2024-07-15] MEDS ORDERED: BASAGLAR K100 UNIT/3 SC (22:57)
[2024-07-15] MEDS ORDERED: OXYCODONE-ACET1 EAC2 PO (22:58)
[2024-07-16 00:03] VITALS: BP 156/79
[2024-07-16] MEDS ORDERED: Acetaminophen 325 MG TABLET PO PRN (01:50)
[2024-07-16] MEDS ORDERED: DiphenhydrAMINE HCL 25 MG Cap PO PRN (01:50)
[2024-07-16] MEDS ORDERED: OxyCODONE 10/Acetamin 325 TABLET PO PRN (01:50)
[2024-07-16] MEDS ORDERED: Nitroglycerin 0.4 MG SUBL SL PRN (02:35)
[2024-07-16] MEDS ORDERED: Oxymetazoline 0.05% Nasal Relief Spray 15mL BTL PRN (02:35)
[2024-07-16 04:01] VITALS: BP 128/74
[2024-07-16 05:42] LABS: Hematocrit 29.4 % (33.0-51.0); Hemoglobin 9.4 g/dL (11.5-16.0); Mean Corpuscular HGB 28.7 pg (26.0-34.0); Mean Corpuscular Volume 90 fL (80-100); Mean Platelet Volume 11.3 fL (9.1-12.4); Platelet Count 108 K/mm3 (150-400); RDW Standard Deviation 45.5 fL (35.1-46.3); Red Blood Cell Count 3.27 M/mm3 (3.80-5.20)
--- NOTE | 2024-07-16 05:52 | NUR ---
SHIFT SUMMARY PT ARRIVES TO ROOM 326 FROM THE ER AROUND 2330 VIA GURNEY. PT TRANSFERS TO HOSPITAL BED, SBA WITH HER CANE. ORIENTED TO ROOM AND CALL LIGHT. PT IS A&OX4, PLEASANT AND COOPERATIVE. VSS ON RA. C/O PAIN TO BLE, MANAGED WITH PRN 10MG OXYCODONE. PT HAS A POST-OP BOOT TO RIGHT ANKLE. TOLERATING A CONS CARB DIET, TAKES PILLS WHOLE WITH FLUIDS. BED IN LOWEST POSITION, CALL LIGHT WITHIN REACH.
[2024-07-16] MEDS ORDERED: Pantoprazole Sodium 40 MG Tab PO SCH (06:00)
[2024-07-16 06:17] LABS: Bun/Creatinine Ratio 26.3 (12.0-20.0); Calcium, Blood 8.4 mg/dL (8.5-10.1); Creatinine, Blood 1.18 mg/dL (0.40-1.00); Potassium, Blood 3.8 mmol/L (3.5-5.5)
[2024-07-16] MEDS ORDERED: Insulin Human Lispro 100 Units/ML 3ML Syringe SC SCH (07:30)
[2024-07-16 07:49] VITALS: BP 140/80
--- NOTE | 2024-07-16 08:13 | NUR ---
TRANSFER NOTE PT A&OX4. PT ESCORTED BY TECH TO CT. PT DISCONECTED AND SALINE LOCKED FROM IV INFUSION. PT DISCONECTED FROM CONT. PULSE OX AND TELE. TELE NOTIFIED. TRISTENRY IN CUP AT BEDSIDE. PT BOOT APPLIED TO RIGHT FOOT. MORNING MEDS GIVEN. VSS. PT INDEPENDENTLY TRANSFERED TO WHEELCHAIR.
[2024-07-16] MEDS ORDERED: Pregabalin 75 MG Cap PO SCH (09:00)
[2024-07-16] MEDS ORDERED: Heparin Sodium,Porcine 5,000 UNIT/0.5 ML SDV SC SCH (09:00)
[2024-07-16] MEDS ORDERED: Lactobacil 2-S.Thermo-Bifido 1 1 Cap PO SCH (09:00)
[2024-07-16] MEDS ORDERED: Enoxaparin 40 MG/0.4 ML SYR SC SCH (09:00)
[2024-07-16] MEDS ORDERED: Aspirin 81 MG Chew PO SCH (09:00)
[2024-07-16] MEDS ORDERED: Clopidogrel Bisulfate 75 MG Tab PO SCH (09:00)
[2024-07-16] MEDS ORDERED: Losartan Potassium 25 MG Tab PO SCH (09:00)
[2024-07-16] MEDS ORDERED: Atorvastatin 40 MG Tab PO SCH ×2 (09:00)
--- NOTE | 2024-07-16 10:05 | NUR ---
NOTE PT BACK IN ROOM FROM MRI. PT BACK ON TELE. NS RUNNING THROUGH IV AT 75ML/HR. PT ORIENTED TO ROOM. CALL LIGHT IN REACH.
[2024-07-16] MEDS ORDERED: Glucose Oral Gel 15 GM TUBE PO PRN (11:30)
[2024-07-16 15:42] VITALS: BP 140/75
--- NOTE | 2024-07-16 17:58 | NUR ---
DISCHARGE SUMMARY: PT DISCHARGED HOME WITH HOME HEALTH SERVICES. PT EDUCATED ON DISCHARGE MEDICATIONS AND INSTRUCTIONS. ASSISTED PT WITH GETTING DRESSED. PT HAD EARRINGS IN A CUP, MADE SURE SHE HAD THOSE WITH HER BELONGINGS. SHE WAS WEARING HER RINGS AND NECKLACE SHE TOOK OFF FOR HER MRI. PT ESCORTED TO [facility] VIA WHEELCHAIR WITH HER DAUGHTER.
[2024-07-16] MEDS ORDERED: Insulin Glargine-Yfgn 100 Unit/mL 3 ML SYR SC SCH (21:00)
[2024-07-16] MEDS ORDERED: QUEtiapine Fumarate 200 MG Tab PO SCH (21:00)
== END 2024-07-16 17:25 | disposition home health service (06) ==
LOC: ER 11:24 → MEDS 11:25 → ENPENDDIS 07-16 16:14 → MEDS 07-16 17:25
PROVIDERS: Emergency Medicine; Nurse Practitioner Acute Care; Physician Assistant; ADMIT Student in an Organized Health Care Education/Training Program
DX: G45.9 Transient cerebral ischemic attack, unspecified (principal); E11.22 Type 2 diabetes mellitus with diabetic chronic kidney disease; I12.9 Hypertensive chronic kidney disease with stage 1 through stage 4 chronic kidney disease, or unspecified chronic kidney disease; N18.31 Chronic kidney disease, stage 3a; N17.9 Acute kidney failure, unspecified; E66.01 Morbid (severe) obesity due to excess calories; E78.5 Hyperlipidemia, unspecified; G47.33 Obstructive sleep apnea (adult) (pediatric); K21.9 Gastro-esophageal reflux disease without esophagitis; Z79.4 Long term (current) use of insulin; Z79.899 Other long term (current) drug therapy; Z88.8 Allergy status to other drugs, medicaments and biological substances
CPT/HCPCS: 0241U; 36415; 70450; 70551; 80048; 80053; 81003; 82947; 83036; 83735; 83880; 85025; 85027; 93005; 93010; 93306; 93880; 96360; 96372; 97116; 97162; 97165; 97530; 99285-25; A9270; G0378; J1644; J1815; J7030

== ENCOUNTER 2024-10-14 12:02 | Emergency (ER) | payer OTHER ==
[~2024-10-14] VITALS: Ht 165.1 cm; Wt 77.1 kg
[~2024-10-14 12:02] MED LIST changes: +BASAGLAR K100 UNIT/3 SC; +BUMETANIDE2 M6 PO; +COLCRYS0.6 M1 PO; +GLUCOPHAGE1000 M1 PO; +GLUCOSE4 GM PO; +HUMALOG KW100 UNIT/1 SC; +KLOR-CON 1010 ME9 PO; +Lyrica300 MG PO; +NITROGLYCERIN0.4 M3 SL; +OXYCODONE-ACET1 EAC2 PO; +OZEMPIC2 MG/0.75 SC; +[UNRECOGNIZED DRUG - OTHER]
[2024-10-14 12:47] LABS: BASOPHILS ABSOLUTE AUTO 0.03 K/mm3 (0.00-0.23); BASOPHILS PERCENT AUTO 1 % (0-2); EOSINOPHILS ABSOLUTE AUTO 0.08 K/mm3 (0.00-0.68); EOSINOPHILS PERCENT AUTO 1 % (0-6); Hematocrit 33.2 % (33.0-51.0); Hemoglobin 10.4 g/dL (11.5-16.0); IMMATURE GRAN PERCENT AUTO 2 % (0-1); LYMPHOCYTES ABSOLUTE AUTO 1.71 K/mm3 (0.84-5.20); LYMPHOCYTES PERCENT AUTO 29 % (21-46); MONOCYTES ABSOLUTE AUTO 0.44 K/mm3 (0.16-1.47); MONOCYTES PERCENT AUTO 8 % (4-13); Mean Corpuscular HGB Conc 31.3 g/dL (31.5-36.5); Mean Corpuscular Volume 89 fL (80-100); Mean Platelet Volume 10.9 fL (9.1-12.4); NEUTROPHILS ABSOLUTE AUTO 3.54 K/mm3 (1.96-9.15); NEUTROPHILS PERCENT AUTO 60 % (41-73); Platelet Count 126 K/mm3 (150-400); RDW Coefficient Variation 13.1 % (11.7-14.2); RDW Standard Deviation 42.2 fL (35.1-46.3); Red Blood Cell Count 3.72 M/mm3 (3.80-5.20)
[2024-10-14 12:55] LABS: Albumin, Blood 3.2 g/dL (3.4-5.0); Albumin/Globulin Ratio 0.7 (0.8-1.8); Bilirubin, Total 0.3 mg/dL (0.1-1.0); Bun/Creatinine Ratio 14.5 (12.0-20.0); Calcium, Blood 8.4 mg/dL (8.5-10.1); Creatinine, Blood 1.52 mg/dL (0.40-1.00); Globulin, Blood 4.3 g/dL (2.2-4.0); Magnesium, Blood 2.3 mg/dL (1.6-2.4); Phosphorus, Blood 4.2 mg/dL (2.5-4.9); Total Protein, Blood 7.5 g/dL (6.4-8.2)
== END 2024-10-14 15:23 | disposition home or self-care (01) ==
LOC: ER 12:02
PROVIDERS: Student in an Organized Health Care Education/Training Program
DX: R53.83 Other fatigue (principal); R53.1 Weakness; E11.9 Type 2 diabetes mellitus without complications; Z91.041 Radiographic dye allergy status; Z79.85 Long-term (current) use of injectable non-insulin antidiabetic drugs; Z79.4 Long term (current) use of insulin; Z79.899 Other long term (current) drug therapy
CPT/HCPCS: 80053; 83735; 84100; 84484; 85025; 99285-25

== ENCOUNTER → 2024-10-29 | Outpatient (CLI) | payer OTHER | LOC: LAB SHORT 13:01 → LAB 13:01 | DX: R39.9 Unspecified symptoms and signs involving the genitourinary system (principal) | CPT/HCPCS: 87086 ==

== ENCOUNTER → 2025-04-17 | Outpatient (CLI) | payer OTHER | LOC: LAB 14:23 → LAB SHORT 14:23 | DX: R30.0 Dysuria (principal) | CPT/HCPCS: 87086 ==

== ENCOUNTER 2025-05-08 21:43 | Emergency (ER) | payer OTHER ==
[~2025-05-08] VITALS: Ht 165.1 cm; Wt 79.8 kg
[2025-05-08 22:48] LABS: BASOPHILS ABSOLUTE AUTO 0.03 K/mm3 (0.00-0.23); BASOPHILS PERCENT AUTO 1 % (0-2); EOSINOPHILS ABSOLUTE AUTO 0.07 K/mm3 (0.00-0.68); EOSINOPHILS PERCENT AUTO 2 % (0-6); Hematocrit 32.4 % (33.0-51.0); Hemoglobin 11.3 g/dL (11.5-16.0); IMMATURE GRAN ABSOLUTE AUTO 0.06 K/mm3 (0.00-0.10); IMMATURE GRAN PERCENT AUTO 1 % (0-1); LYMPHOCYTES ABSOLUTE AUTO 1.36 K/mm3 (0.84-5.20); LYMPHOCYTES PERCENT AUTO 30 % (21-46); MONOCYTES ABSOLUTE AUTO 0.30 K/mm3 (0.16-1.47); MONOCYTES PERCENT AUTO 7 % (4-13); Mean Corpuscular HGB Conc 34.9 g/dL (31.5-36.5); Mean Corpuscular Volume 86 fL (80-100); NEUTROPHILS ABSOLUTE AUTO 2.76 K/mm3 (1.96-9.15); NEUTROPHILS PERCENT AUTO 60 % (41-73); NRBC ABSOLUTE 0.00 K/mm3 (0.00-0.02); NRBC Auto 0.0 /100 WBC (0.0-0.2); Platelet Count 107 K/mm3 (150-400); RDW Coefficient Variation 14.3 % (11.7-14.2); RDW Standard Deviation 44.4 fL (35.1-46.3)
[2025-05-08] MEDS ORDERED: NS 1,000 ML IV SCH ×2 (23:25→23:40)
[2025-05-08 23:40] LABS: Albumin, Blood 3.1 g/dL (3.4-5.0); Albumin/Globulin Ratio 0.7 (0.8-1.8); Anion Gap 10.0 mmol/L (3-11); Aspartate Aminotrans (AST/SGOT 111.0 U/L (12-37); Bilirubin, Total 0.4 mg/dL (0.1-1.0); Blood Urea Nitrogen 25.0 mg/dL (8-24); CO2, Blood 24.0 mmol/L (21-32); Calcium, Blood 7.4 mg/dL (8.5-10.1); Chloride, Blood 97.0 mmol/L (98-108); Creatinine, Blood 1.12 mg/dL (0.40-1.00); Globulin, Blood 4.2 g/dL (2.2-4.0); Glucose, Blood 696.0 mg/dL (70-99); Potassium, Blood 4.1 mmol/L (3.5-5.5); Sodium, Blood 127.0 mmol/L (136-145); Total Protein, Blood 7.3 g/dL (6.4-8.2)
[2025-05-09] LABS: Alanine Aminotransfer (ALT/SGP 84.0 U/L (12-78); Magnesium, Blood 2.5 mg/dL (1.6-2.4)
[2025-05-09 00:35] LABS: pH Blood Venous 7.34 (7.34-7.37)
[2025-05-09 00:56] LABS: Osmolality, Serum 319.0 mos/KG (275-300)
[2025-05-09] MEDS ORDERED: Insulin Regular 100 Unit/ML 1ML Dose SC ONE ×4 (01:45→05:40)
[2025-05-09 02:25] LABS: Source, Urine Clean Catch
[2025-05-09 02:30] LABS: Bilirubin, Urine Neg (Neg); Glucose Qualitative, Urine 4+ (Neg); Ketones, Urine Neg (Neg); Leukocyte Esterase, Urine 1+ (Neg); Protein, Urine Neg (Neg); Specific Gravity, Urine 1.010 (1.003-1.022); Urobilinogen, Urine NORM (Normal)
[2025-05-09 02:38] LABS: Color, Urine Pale Yellow (P-Yellow)
[2025-05-09 02:41] LABS: Red Blood Cells, Urine 0-2 /hpf (0-2); White Blood Cells, Urine 25-50 /hpf (0-5)
== END 2025-05-09 08:02 | disposition home or self-care (01) ==
LOC: ER 21:43
PROVIDERS: Emergency Medicine
DX: E11.65 Type 2 diabetes mellitus with hyperglycemia (principal); Z79.899 Other long term (current) drug therapy; Z79.4 Long term (current) use of insulin; Z91.041 Radiographic dye allergy status; Z88.8 Allergy status to other drugs, medicaments and biological substances
CPT/HCPCS: 70450; 80053; 81001; 82010; 82803; 82947; 83735; 83930; 84484; 85025; 87077; 87086; 87186; 93005; 93010; 96360; 96361; 99284-25; J1815; J7030

== ENCOUNTER 2025-06-13 17:27 | Emergency (ER) | payer OTHER ==
[~2025-06-13] VITALS: Ht 165.1 cm; Wt 81.7 kg
[2025-06-13] MEDS ORDERED: Lidocaine 4% 1 Patch TOP ONE (20:20)
[2025-06-13] MEDS ORDERED: Ketorolac Tromethamine 30mg Vial IM ONE (20:20)
[2025-06-13] MEDS ORDERED: LIDO700A20 TOP (20:48)
[2025-06-13] MEDS ORDERED: CYCL10 PO (20:48)
[2025-06-16] MEDS ORDERED: CEPH500 PO (17:16)
== END 2025-06-13 20:52 | disposition home or self-care (01) ==
LOC: ER 17:27
DX: M54.41 Lumbago with sciatica, right side (principal); E11.9 Type 2 diabetes mellitus without complications; Z91.041 Radiographic dye allergy status; Z88.8 Allergy status to other drugs, medicaments and biological substances; Z79.899 Other long term (current) drug therapy; Z79.4 Long term (current) use of insulin
CPT/HCPCS: 96372; 99282-25; A9270; J1885

== ENCOUNTER → 2025-07-16 | Outpatient (CLI) | payer OTHER ==
[~2025-07-16] MED LIST changes: -ATOR10 PO; +ATOR40TA PO; +CYCL10 PO; +FARXIGA10 MG PO; +FIASP 100100 UNIT/3 SC; -HUMALOG KW100 UNIT/1 SC; +LIDO700A20 TOP
[2025-07-16 15:38] LABS: Bacterial Vaginosis PCR Negative (NEGATIVE)
[2025-07-16 15:39] LABS: Candida Group, PCR DETECTED (NOT DETECT); Candida glabrata-krusei, PCR DETECTED (NOT DETECT)
== END ==
LOC: LAB 12:27 → LAB SHORT 12:27
PROVIDERS: Student in an Organized Health Care Education/Training Program
DX: R30.0 Dysuria (principal)
CPT/HCPCS: 81515; 87086